=== PATIENT | female | born 1930 | race Caucasian/White ===

== ENCOUNTER 2017-01-24 11:40 | Inpatient (IN) | payer MEDICARE ==
--- NOTE | ~2017-01-24 | HP ---
History And Physical [id number] [place]. [address] NAME: MARIS HAJI : [birth year] STATUS : ADM IN [facility]#: [id number] AGE: 86 ADM/REG DATE : 01/24/17 MR#: [id number] REPORT SERV DATE: 01/24/17 DICTATED BY: LYDIA DEVLIN DATE: 01/24/17 REPORT STATUS : Draft TRANSCRIBED BY: MODL DATE: 01/24/17 DATE OF ADMISSION: 01/24/2017 CHIEF COMPLAINT: This 86-year-old white female, who is triaged in the emergency room today 01/24/2017 at 1049 hours with a chief complaint of possible GI bleed per . After evaluation in the emergency room, it was felt that further inpatient evaluation and treatment would be needed. She was referred to the Hospitalist Service for admission. She is now seen by the undersigned and admitted. The history was obtained from the patient, , ER physician, Dr. Dailey, and review of medical records on [facility] [employer] [facility]. HISTORY OF PRESENT ILLNESS: For approximately two days, she has had diarrhea with dark black stools. Associated with this, she has had diffuse moderate abdominal pain. She has had nausea, but no vomiting. She has had malaise, weakness, and chills without documented fever. She has not had chest pain. She has not had any urinary bleeding. She has not been taking any aspirin, Aleve, and Advil, or other NSAID. She has not been using any Pepto-Bismol. She has noted no other mucosal bleeding. She has not had previous gastrointestinal bleeding. She does not recall previous GI endoscopic evaluation, though when hospitalized here in 2008, she had a hemoccult-positive stool, and it was suggested that she have an outpatient evaluation. PAST MEDICAL HISTORY: Her other significant medical history includes: 1. Chronic atrial fibrillation. 2. Xarelto for atrial fibrillation. 3. Systolic congestive heart failure. 4. Systemic hypertension. 5. Hiatal hernia with reflux disease. 6. Previous infrarenal abdominal aortic aneurysm post bilateral stent graft, the iliacs. 7. Hyperlipidemia. 8. Osteoarthritis. 9. Chronic left lower extremity pain , post back surgery, 12/04/2009 for spinal stenosis with intractable radiculopathy L3-L4, L4-L5 on left. 10.Hypothyroid with possible iatrogenic hyperthyroidism with TSH on 12/09/2016, 0.008. 11.Osteoporosis with L1-L2 compression fracture. PAST SURGICAL HISTORY: Lrdog-kf-yibwh stent graft, back surgery as noted, cholecystectomy, abdominal hysterectomy, cataract extraction. ALLERGIES OR INTOLERANCE: Penicillin and sulfadiazine. HOME MEDICATIONS: Coreg 12.5 mg twice daily, Neurontin 300 mg daily, levothyroxine 112 mcg daily, Prilosec 20 mg daily as needed, Systane eye drops, potassium 10 mEq daily, Xarelto 20 mg daily, Zocor 40 mg daily, Aldactone 25 mg daily, Demadex 20 mg daily, Calan SR 240 mg History And Physical [address] [address] NAME: MARIS HAJI : [birth year] STATUS : ADM IN [facility]#: [id number] AGE: 86 ADM/REG DATE : 01/24/17 MR#: [id number] REPORT SERV DATE: 01/24/17 DICTATED BY: LYDIA DEVLIN DATE: 01/24/17 REPORT STATUS : Draft TRANSCRIBED BY: CRIS DATE: 01/24/17 daily. SOCIAL HISTORY: for 47 years. Lives with . Remote tobacco use. Two children and three grandchildren. FAMILY HISTORY: Mother with TB. Father had a stroke. Brother with coronary artery disease. REVIEW OF SYSTEMS: Complete, done with the patient and and negative except as noted above. PHYSICAL EXAMINATION: VITAL SIGNS: Admission ER vital signs, blood pressure 104/66, temperature 98.3, pulse 67, respirations 18, O2 saturation 99%. When seen by the undersigned, sinus bradycardia rate 59, blood pressure 102/59, O2 saturation 95, respirations 16. Note on review of blood pressure trends, she has had two blood pressure is 96/58 and 88/55 during her ER stay. GENERAL: This is an acutely ill-appearing white female examined in the emergency room, who is uncomfortable and actually does not wish to be touched or examined. SKIN: Warm and dry. No rash, petechiae, or ecchymoses. NODES: No palpable cervical. I cannot adequately feel axillary inguinal areas because of hypersensitivity. HEENT: Atraumatic with symmetric facies. Lids, sclerae, and conjunctivae negative. No xanthelasma, scleral icterus, or conjunctival petechiae or injection. Pupils are equal, round, and reactive to light. Extraocular movements intact. No nystagmus. Hearing intact. External ears negative. Nose negative. Anterior nares clear. Lips, gums, tongue, mucosa, hard and soft palates, posterior pharynx, negative. She is edentulous. NECK: Supple. No visible JVD or asymmetry. No palpable mass, goiter, or tenderness. Trachea midline. Nontender. LUNGS: Clear to auscultation. Normal respiratory effort. HEART: Irregular rhythm. No audible murmur, gallop, rub, or click. Distant heart tones. Pulses 2+ radial carotid and dorsalis pedis. Cannot feel femoral areas because of hypersensitivity. ABDOMEN: Obese, slightly distended, diffusely tender to palpation without guarding, rebound, or rigidity. Cannot feel liver, spleen, kidneys, or aortic pulsation. EXTREMITIES: Bony knee and shoulder deformities. No active synovitis or clubbing. No edema. NEUROLOGIC: Mental status appears normal. Cranial nerves II through XII normal. Deep tendon reflexes absent. Sensory intact touch and temperature. PSYCHIATRIC: Appropriate mood and affect for presentation. DATA: Sodium 140, potassium 4.3, chloride 108, CO2 of 23, BUN 22, creatinine 1.09, glucose 80, calcium 8.3. Total protein 6.7, albumin 3, globulin 3.7, total bilirubin is 0.6. Alkaline phosphatase 81, ALT 34, AST 43. Lipase is 173, troponin less than 0.02. BNP is 152.2. White count on admission 5.7, repeat 6 hours 4.5; hemoglobin 13.8 on admission, repeat 6 hours, 13.6; platelets 129 on admission, repeat 118,000. PT and PTT are pending. Urinalysis, positive protein. EKG, atrial fibrillation, no acute changes. Chest x-ray is pending. CT of the abdomen and pelvis, abdominal aortic aneurysm 6.3 x 6.3 without evidence History And Physical [address] [address] NAME: MARIS HAJI : [birth year] STATUS : ADM IN [facility]#: [id number] AGE: 86 ADM/REG DATE : 01/24/17 MR#: [id number] REPORT SERV DATE: 01/24/17 DICTATED BY: LYDIA DEVLIN DATE: 01/24/17 REPORT STATUS : Draft TRANSCRIBED BY: MODL DATE: 01/24/17 for aneurysmal bleed. Bifurcated aortoiliac stent graft in place. Large hiatal hernia. Hepatic and renal cysts. Diverticulosis L1-L2 compression fractures. Thoracolumbar dextroscoliosis with posterior lumbar fusion L3-L5. ASSESSMENT: This is an 86-year-old white female with: 1. Gastrointestinal bleeding on Xarelto. 2. Chronic atrial fibrillation. 3. Systolic congestive heart failure. 4. Hypertension with transient hypotension in the emergency room. 5. Large hiatal hernia on CT. 6. Svdoe-ee-fldts stent graft, leak not excluded without contrast on CT. 7. Large hiatal hernia. 8. Hyperlipidemia. 9. Osteoarthritis. 10.Chronic pain post back surgery. 11.Hypothyroid possible iatrogenic hyperthyroid. 12.Osteoporosis with L1-L2 compression fractures. 13.Hepatic and renal cysts. 14.Diverticulosis. PLAN: Six floor admit. Discontinue Calan. Reduce carvedilol. Hold levothyroxine until followup TSH. Protonix drip. Hold potassium, Xarelto, Aldactone, and torsemide. Crystalloid volume resuscitation. Followup laboratory studies. I called and spoke with Dr. Walt Chavez personal care home administrator for [facility], is aware of the patient tonight. Endoscopy evaluation in a.m. Further diagnostic and therapeutic recommendations pending above. The patient is full code on discussion. DD/MODL Lydia Devlin M.D. / [id number] CC: Pérez Moyer M.D.
--- NOTE | ~2017-01-24 | CN ---
Consultation Report [facility] [address] [place]. [address] NAME: MARIS WALDRON : [birth year] STATUS : ADM IN PAT#: [id number] AGE: 86 ADM/REG DATE : 01/24/17 MR#: [id number] REPORT SERV DATE: 01/25/17 DICTATED BY: MAYDA GUNTER DATE: 01/25/17 REPORT STATUS : Draft TRANSCRIBED BY: MODL DATE: 01/25/17 GI CONSULTATION DATE OF CONSULTATION: 01/25/2017 REASON FOR CONSULTATION: Evaluation and management of GI bleed melena. HISTORY OF PRESENT ILLNESS: Ms Waldron is an 86-year-old female patient, who presented to [facility] on 01/24/2017 with a chief complaint of black stools since Monday. This is reported from the . The patient states that she has been having abdominal pain as well as diarrhea and black stools. The describes this all began on Monday. She does have a history of atrial fib, being on Xarelto, which the last dose of this was Monday on 01/22/2017. CT scan on admission was obtained. This was a noncontrasted exam. Findings on that exam showed an abdominal aortic aneurysm. It measured 6.3 x 6.3 cm without evidence of aneurysm leak with appearance of a bifurcated aortoiliac stent graft being in place, not well evaluated secondary to lack of contrast, so could not exclude endoleak. She had a large hiatal hernia, hepatic, cyst as well as renal cyst, diverticulosis without diverticulitis. Her hemoglobin on admission was 13.8, presently it is 13.2, INR of 1.2. BUN 22, creatinine 1.09. This morning, she has still had abdominal discomfort, unsure if she has had any recurrent diarrhea, the states that he has not been informed of that if she has. She has had some mild nausea at home without emesis. She has had a colonoscopy in the very distant past. The remembers diverticulosis, but that is all that he can recall from that exam. I have discussed with him. She will be taken down to the GI lab today and perform an upper endoscopy with Dr. Nova. Risks, benefits, alternatives, and complications were detailed for her to include, but not limited to risk of bleeding, perforation, infection, reaction to medications, as well as cardiac and pulmonary side effects. He gives clearance to proceed. PAST MEDICAL HISTORY: Chronic atrial fibrillation, on Xarelto; systolic CHF; hypertension; hiatal hernia; reflux; previous infrarenal abdominal aortic aneurysm with post bilateral stent graft; hyperlipidemia; osteoarthritis; chronic left lower extremity pain and edema; hypothyroidism; osteoporosis with compression fractures. PAST SURGICAL HISTORY: Kwjtv-qn-zkgvv stent graft, back surgery, cholecystectomy, hysterectomy, and cataract surgery. ALLERGIES: PENICILLIN AND SULFA. HOME MEDICATIONS: Coreg, Neurontin, levothyroxine, Prilosec, Systane eye drops, potassium, Xarelto, Zocor, Aldactone, Demadex, and Calan. SOCIAL HISTORY: . is present at the bedside. Past tobacco. No alcohol. No illicits. Consultation Report [address] [place]. [address] NAME: MARIS WALDRON : [birth year] STATUS : ADM IN [facility]#: [id number] AGE: 86 ADM/REG DATE : 01/24/17 MR#: [id number] REPORT SERV DATE: 01/25/17 DICTATED BY: MAYDA GUNTER DATE: 01/25/17 REPORT STATUS : Draft TRANSCRIBED BY: CRIS DATE: 01/25/17 FAMILY HISTORY: Noncontributory from a GI standpoint. REVIEW OF SYSTEMS: A 10-point review of systems was obtained, pertinent positives are addressed in the history of present illness. PHYSICAL EXAMINATION: VITAL SIGNS: Temperature is 98.4, pulse 72, respirations 18, and blood pressure 110/55. NEUROLOGIC: Reveals an alert, chronically ill-appearing elderly female, resting in bed. No obvious focal deficits. GENERAL: Cooperative, in no apparent distress. She is awake. She is alert. She is oriented. HEAD, EARS, EYES, NOSE, AND THROAT: Anicteric. Pupils are equal, round, and reactive to light and accommodation. Normocephalic and atraumatic. NECK: No JVD. No palpable nodes. LUNGS: Decreased and coarse in the bases. Shallow inspiratory effort. CARDIOVASCULAR SYSTEM: Irregularly rate and rhythm. ABDOMEN: Soft, obese, nondistended, but tender to palpation diffusely markedly felt on the left side. No rebound or guarding. No distention noted. EXTREMITIES: Left lower extremity edema which is chronic per the 's reports. SKIN: Warm, dry, and intact. PERTINENT LABORATORY DATA: Sodium 142, potassium 4.0, BUN is 21, and creatinine 0.83. White count 5.4, hemoglobin 13.2, hematocrit 41.3, and platelet count 117. INR 1.2. CO2 of 19, ALT of 34, AST of 43. ASSESSMENT: 1. "GI bleed," dark diarrheal stools since Monday. Hemoccult positive in the emergency room. 2. Abdominal pain, diffuse. 3. Atrial fibrillation, on Xarelto. Last dose 01/22/2017. 4. Diarrhea. 5. History of abdominal aortic aneurysm with ixeim-kk-geyum stent grafting. 6. Large hiatal hernia by CT scan. PLAN: 1. PPI drip. 2. EGD today. 3. Check stool studies. Other recommendations to follow endoscopy. ILAN/CRIS Devers Consultation Report [address] [place]. [address] NAME: MARIS WALDRON : [birth year] STATUS : ADM IN [facility]#: [id number] AGE: 86 ADM/REG DATE : 01/24/17 MR#: [id number] REPORT SERV DATE: 01/25/17 DICTATED BY: MAYDA GUNTER DATE: 01/25/17 REPORT STATUS : Draft TRANSCRIBED BY: MODL DATE: 01/25/17 [place] / [id number] CC: Pérez Moyer M.D.
--- NOTE | ~2017-01-24 | DS ---
Discharge Summary [address] [place]. [address] NAME: MARIS HAJI : [birth year] STATUS : DIS IN PAT#: [id number] AGE: 86 ADM/REG DATE : 01/24/17 MR#: [id number] REPORT SERV DATE: 01/27/17 DICTATED BY: LYDIA DEVLIN DATE: 01/26/17 REPORT STATUS : Draft TRANSCRIBED BY: MODL DATE: 01/26/17 ADMISSION DATE: 01/24/2017 DISCHARGE DATE: 01/26/2017 DISCHARGE DIAGNOSES: 1. Upper gastrointestinal bleeding. 2. Diffuse moderate inflammation characterized by erosions, erythema, and friability in the entire stomach, biopsies pending, endoscopic appearance consistent with gastritis. 3. A 9 cm hiatal hernia. 4. Chronic atrial fibrillation, on Eliquis. 5. Chronic systolic heart failure. 6. Hypertension history. 7. Hypotension with present illness and home medications, doses adjusted at discharge. 8. Previous infrarenal abdominal aortic aneurysm status post rjuxt-jh-nhkob stent graft. 9. Diverticulosis. 10.Hyperlipidemia. 11.Osteoarthritis. 12.Chronic anemia. 13.Iatrogenic hyperthyroidism with TSH on current Synthroid dose less than 0.005, Synthroid held at discharge. 14.Osteoporosis with compression fractures. 15.Hepatic and renal cysts. 16.Hypoglycemia, asymptomatic while n.p.o. OPERATIONS AND PROCEDURES: EGD and biopsies, Dr. Nova, 01/25/2017. PRESENT ILLNESS: This is an 86-year-old white female, who was triaged in the emergency room on 01/24/2017 at 1049 hours with black stools. After evaluation in the emergency room, she was referred to the Hospitalist Service for admission. She was seen by the undersigned and admitted as described on admission history and physical examination. Additional history included two days of diarrhea with dark black stools associated with diffuse moderate abdominal pain. She had not been taking any aspirin, Aleve, Advil, or other NSAID. She had not been using Pepto-Bismol. She had not had previous gastrointestinal bleeding and neither the patient nor recalled any previous GI endoscopic evaluation. ADDITIONAL HISTORY: Per history and physical examination. PHYSICAL EXAMINATION: Per history and physical examination. ADMISSION LABORATORY: Per admission history and physical examination. HOSPITAL COURSE: She was admitted as described with gastrointestinal bleeding, on Xarelto. Discharge Summary [place] [address] [place]. [address] NAME: MARIS HAJI : [birth year] STATUS : DIS IN PAT#: [id number] AGE: 86 ADM/REG DATE : 01/24/17 MR#: [id number] REPORT SERV DATE: 01/27/17 DICTATED BY: LYDIA DEVLIN DATE: 01/26/17 REPORT STATUS : Draft TRANSCRIBED BY: MODJersey DATE: 01/26/17 She was admitted to [address] [place] [address]. Xarelto was discontinued. Her home blood pressure medication was held. She was given a crystalloid volume resuscitation. In the emergency room, a CT scan of her abdomen and pelvis had been done. This demonstrated abdominal aortic aneurysm measuring up to 6.3 x 6.3 cm without evidence for aneurysm leak. The stent graft integrity and patency could not be evaluated. An endoleak could not be excluded on this exam as she did not have contrast. Additional findings included a large hiatal hernia, hepatic and left renal cysts, colonic diverticulosis without diverticulitis, compression fractures at L1 and L2, and thoracolumbar dextroscoliosis with posterior lumbar fusion from L3 through L5. She was started on a Protonix drip. I spoke with [facility], Dr. Chavez. A followup hemoglobin was checked 6 hours post ED admission and was relatively stable at 13.8 and 13.6. It was not felt that any emergent further endoscopic or vascular evaluation was in order. On 01/25/2017, she was taken to the GI lab where an EGD was performed by Dr. Nova with findings as described. There were no complications with this procedure. With the above-mentioned therapy while hospitalized, her black stools resolved. Her diet was resumed, and she did not have any GI symptoms. On 01/26/2017, when seen with her , she had no nausea or vomiting. She had no new pains with her chronic back and leg pain being stable. She was not dizzy sitting and was not dyspneic. Her sitting blood pressure was 99/62 without symptoms. Her room air saturation was 96 to 97. There were no new findings on exam, and her hemoglobin was 13.5. Her and I spoke about disposition planning or reconsideration of SNF/rehab versus home with home health care. He and his both preferred home with home health care. At this point, he felt that she was back to her baseline state. She was thought to be safe for discharge. She will have home health care for PT evaluation and treatment, med rec and monitoring, and a home evaluation. She will continue her home diet and activity. GI approved continuing her Xarelto at discharge at 20 mg daily. Her other medications will be Coreg 6.25 mg twice daily, reduced from 12.5; gabapentin 300 mg at bedtime; Prilosec 20 mg before breakfast and supper for 30 days, then daily; Zocor 40 mg daily. She will not use potassium or Calan SR 240 at this time. She will hold levothyroxine pending outpatient TSH checks. She will continue Xarelto as noted. She will continue Demadex 20 mg daily plus Aldactone 25 mg daily. An appointment was scheduled for her to see Dr. Luo next week for followup check and labs. will be contacting her about her biopsies. Discharge Summary [address] [place]. [address] NAME: MARIS HAJI : [birth year] STATUS : DIS IN PAT#: [id number] AGE: 86 ADM/REG DATE : 01/24/17 MR#: [id number] REPORT SERV DATE: 01/27/17 DICTATED BY: LYDIA DEVLIN DATE: 01/26/17 REPORT STATUS : Draft TRANSCRIBED BY: CRIS DATE: 01/26/17 Discharge time greater than 30 minutes. DD/CRIS Lydia Devlin M.D. / [id number] CC: Pérez Moyer M.D. Chuck
--- NOTE | ~2017-01-24 | EGD ---
EGD REPORT [facility] [address] [address] NAME: DELMY WALDRON : [birth year] STATUS : ADM IN PAT#: [id number] AGE: 86 ADM/REG DATE : 01/24/17 MR#: [id number] REPORT SERV DATE: 01/25/17 DICTATED BY: TRISTAN LUNDBERG DATE: 01/25/17 REPORT STATUS : Draft TRANSCRIBED BY: [employer] DATE: 01/25/17 Endoscopy Center Patient Name: Delmy Waldron Date of : 1930 Attending MD: TRISTAN LUNDBERG, Procedure Date No Time: 01/25/2017 Procedure: Upper GI endoscopy Indications: Melena Referring MD: LYDIA SINCLAIR Medicines: Monitored Anesthesia Care Complications: No immediate complications. Estimated blood loss: None. Procedure: Pre-Anesthesia Assessment: - ASA Grade Assessment: IV - A patient with severe systemic disease that is a constant threat to life. After obtaining informed consent, the endoscope was passed under direct vision. Throughout the procedure, the patient's blood pressure, pulse, and oxygen saturations were monitored continuously. The GIF [id number] was introduced through the mouth, and advanced to the second part of duodenum. The upper GI endoscopy was accomplished without difficulty. The patient tolerated the procedure well. Findings: The examined esophagus was normal. Localized nodular mucosa was found in the cardia. Biopsies were taken with a cold forceps for histology. Verification of patient identification for the specimen was done. Estimated blood loss was minimal. Diffuse moderate inflammation characterized by erosions, erythema and friability was found in the entire examined stomach. Biopsies were taken with a cold forceps for histology. Verification of patient identification for the specimen was done. Estimated blood loss was minimal. A 9 cm hiatus hernia was present. The examined duodenum was normal. Impression: - Normal esophagus. - Nodular mucosa in the cardia. Biopsied. - Gastritis. Biopsied. - Hiatus hernia. - Normal examined duodenum. Recommendation: - Return to previous diet. - Use Protonix (pantoprazole) 40 mg PO daily. EGD REPORT [facility] [address] [place]. [address] NAME: DELMY WALDRON : [birth year] STATUS : ADM IN [facility]#: [id number] AGE: 86 ADM/REG DATE : 01/24/17 MR#: [id number] REPORT SERV DATE: 01/25/17 DICTATED BY: TRISTAN LUNDBERG DATE: 01/25/17 REPORT STATUS : Draft TRANSCRIBED BY: [employer] DATE: 01/25/17 - Continue present medications. - Await pathology results. Procedure Code(s): --- Professional --- 84806, Esophagogastroduodenoscopy, flexible, transoral; with biopsy, single or multiple Diagnosis Code(s): --- Professional --- K31.9, Disease of stomach and duodenum, unspecified K29.70, Gastritis, unspecified, without bleeding K44.9, Diaphragmatic hernia without obstruction or gangrene K92.1, Melena CPT copyright 2013 [employer]. All rights reserved. The codes documented in this report are preliminary and upon seasonal warehouse associate review may be revised to meet current compliance requirements. TRISTAN LUNDBERG, 01/25/2017 2:09 PM Number of Addenda: 0 Note Initiated On: 01/25/2017 2:00 PM Scope Withdrawal Time 0 hours 0 minutes 0 seconds [address] [place] [address]
[2017-01-24 11:27] LABS: BASOPHILS 0.5 %; BASOPHILS ABSOLUTE 0.03 10/3/uL (0.0-0.16); EOSINOPHILS 0 %; HEMATOCRIT 41.1 % (36.0-48.0); HEMOGLOBIN 13.8 g/dL (12.0-16.0); LYMPHOCYTES 32.7 %; LYMPHOCYTES ABSOLUTE 1.85 10/3/uL (0.67-4.30); MANUAL DIFF NO %; MEAN CORPUS HGB CONC 33.6 g/dL (32.0-36.0); MEAN CORPUSCULAR HEMOGLOB 29.2 pg (26.0-34.0); MEAN CORPUSCULAR VOLUME 86.9 fL (80-100); MEAN PLATELET VOLUME 11.7 fL (9.2-13.0); MONOCYTES 26.2 %; MONOCYTES ABSOLUTE 1.48 10/3/uL (0.21-1.20); NEUTROPHILS 40.6 %; NEUTROPHILS ABSOLUTE 2.29 10/3/uL (2.02-8.40); PLATELET COUNT 129 10/3/uL (150-400); RBC DISTRIBUTION WIDTH 14.9 % (12.0-16.0); RED CELL COUNT 4.73 10/6/uL (4.0-5.6); WHITE BLOOD CELLS 5.7 10/3/uL (4.5-10.5)
[~2017-01-24 11:40] MED LIST: ACCURETI1 PO; ASAB PO; COREG12 PO; DCN100 PO; DEMA100 PO; FOSAMAX70 MG PO; GABARONE300 MG PO; JANTOVEN1 MG PO; JANTOVEN2 MG PO; LEVOTHROID125 MCG PO; MOBIC15 MG PO; NEUR300 PO; P5 PO; PLAQ200B PO; PRILO PO; REG5 PO; SPIRO25 PO; SYN125 PO; VERELAN360 MG PO; ZOCOR40 PO
[2017-01-24 11:41] LABS: A/G RATIO 0.8 (0.7-1.9); BUN (BLOOD UREA NITROGEN) 22 MG/DL (6-23); CHLORIDE, SERUM 108 MMOL/L (96-112); CO2 (CARBON DIOXIDE) 23 MMOL/L (24-34); CREATININE 1.09 MG/DL (0.55-1.02); GFR AFRICAN AMERICAN 53 ML/MIN (>=60); GFR NON AFRICAN AMERICAN 46 ML/MIN (>=60); GLOBULIN 3.7 G/DL (2.5-4.1); GLUCOSE, SERUM 80 MG/DL (60-99); POTASSIUM, SERUM 4.3 MMOL/L (3.5-5.3); SGOT(AST) 43 U/L (5-40); SGPT(ALT) 34 U/L (5-65); SODIUM, SERUM 140 MMOL/L (135-148); TOTAL BILIRUBIN 0.6 MG/DL (0-1.2); TOTAL PROTEIN 6.7 G/DL (6.0-8.5)
[2017-01-24 11:42] LABS: ALKALINE PHOSPHATASE 81 U/L (45-117); CALCIUM, SERUM 8.3 MG/DL (8.5-10.4)
[2017-01-24 12:00] LABS: BAND NEUTROPHILS 4 %; ER DIFF TAT 0 Hrs 37 Mins; LYMPHOCYTES 30 %; LYMPHOCYTES ABSOLUTE (CALC) 1.71 10/3/uL (0.67-4.30); MONOCYTES 21 %; NEUTROPHILS ABSOLUTE (CALC) 2.79 10/3/uL (2.02-8.40); PLATELET ESTIMATE SLT DEC (ADEQUATE); RBC MORPHOLOGY NORM (NORMAL); SEGMENTED NEUTROPHIL (0) 45 %; TOTAL NUCLEATED CELLS 100
[2017-01-24] MEDS ORDERED: COREG12 PO (12:20)
[2017-01-24] MEDS ORDERED: ZOCOR40 PO (12:20)
[2017-01-24] MEDS ORDERED: KLOR-CON 1010 MEQ PO (12:20)
[2017-01-24] MEDS ORDERED: CALAN SR240 MG PO (12:21)
[2017-01-24] MEDS ORDERED: NEUR300 PO (12:21)
[2017-01-24] MEDS ORDERED: DEMA20 PO (12:22)
[2017-01-24] MEDS ORDERED: LEVOTHYROXIN112 MCG PO (12:22)
[2017-01-24] MEDS ORDERED: XARELTO20 MG PO (12:22)
[2017-01-24] MEDS ORDERED: SPIRO25 PO (12:23)
[2017-01-24] MEDS ORDERED: PRILO PO (12:23)
[2017-01-24] MEDS ORDERED: SYSTANE OPH (12:24)
[2017-01-24 14:09] LABS: WBC (NOT ORDERED) (RFLEX) 0 (0-5)
[2017-01-24 14:19] LABS: ASCORBIC ACID (UR NOT ORDER) 40 (NEG); BILIRUBIN, URINE NEGATIVE (NEG); ER URINALYSIS TAT 0 Hrs 10 Mins; KETONE, URINE 20 MG/DL (NEG); LEUKOCYTE ESTERASE(NOT OR NEG (NEG); NITRITE (URINE) NEG (NEG)
[2017-01-24 19:41] LABS: HEMATOCRIT 41.7 % (36.0-48.0); HEMOGLOBIN 13.6 g/dL (12.0-16.0); MEAN CORPUS HGB CONC 32.6 g/dL (32.0-36.0); MEAN CORPUSCULAR VOLUME 88.9 fL (80-100); MEAN PLATELET VOLUME 11.5 fL (9.2-13.0); PLATELET COUNT 118 10/3/uL (150-400); RBC DISTRIBUTION WIDTH 14.8 % (12.0-16.0); RED CELL COUNT 4.69 10/6/uL (4.0-5.6); WHITE BLOOD CELLS 4.5 10/3/uL (4.5-10.5)
[2017-01-24 19:42] LABS: MANUAL DIFF YES %
[2017-01-24 20:01] LABS: BAND NEUTROPHILS 3 %; LYMPHOCYTES 25 %; LYMPHOCYTES ABSOLUTE (CALC) 1.13 10/3/uL (0.67-4.30); MONOCYTES 18 %; MONOCYTES ABSOLUTE (CALC) 0.81 10/3/uL (0.21-1.20); NEUTROPHILS ABSOLUTE (CALC) 2.57 10/3/uL (2.02-8.40); SEGMENTED NEUTROPHIL (0) 54 %; TOTAL NUCLEATED CELLS 100
[2017-01-24 20:02] LABS: BURR CELLS 1+ (3-10/OIF) (0-2/OIF); PLATELET ESTIMATE SLT INC (ADEQUATE)
[2017-01-25 07:03] LABS: BASOPHILS 0.4 %; BASOPHILS ABSOLUTE 0.02 10/3/uL (0.0-0.16); EOSINOPHILS 0 %; HEMATOCRIT 41.3 % (36.0-48.0); HEMOGLOBIN 13.2 g/dL (12.0-16.0); LYMPHOCYTES 34.3 %; LYMPHOCYTES ABSOLUTE 1.84 10/3/uL (0.67-4.30); MEAN CORPUSCULAR HEMOGLOB 29.1 pg (26.0-34.0); MEAN PLATELET VOLUME 11.6 fL (9.2-13.0); MONOCYTES 17.1 %; MONOCYTES ABSOLUTE 0.92 10/3/uL (0.21-1.20); NEUTROPHILS 48.2 %; NEUTROPHILS ABSOLUTE 2.59 10/3/uL (2.02-8.40); PLATELET COUNT 117 10/3/uL (150-400); RBC DISTRIBUTION WIDTH 14.9 % (12.0-16.0); RED CELL COUNT 4.54 10/6/uL (4.0-5.6); WHITE BLOOD CELLS 5.4 10/3/uL (4.5-10.5)
[2017-01-25 07:04] LABS: MANUAL DIFF NO %
[2017-01-25 07:11] LABS: INTERNATIONAL NORMAL RATI 1.2 UNITS (-); PARTIAL THROMBO TIME 32.6 SEC (22.5-37.2); PROTIME (NOT ORD) 14.6 SEC (12.0-14.5)
[2017-01-25 07:30] LABS: BUN (BLOOD UREA NITROGEN) 21 MG/DL (6-23); CALCIUM, SERUM 7.9 MG/DL (8.5-10.4); CHLORIDE, SERUM 112 MMOL/L (96-112); CO2 (CARBON DIOXIDE) 19 MMOL/L (24-34); CREATININE 0.83 MG/DL (0.55-1.02); GFR AFRICAN AMERICAN 73 ML/MIN (>=60); GFR NON AFRICAN AMERICAN 63 ML/MIN (>=60); GLUCOSE, SERUM 60 MG/DL (60-99); SODIUM, SERUM 142 MMOL/L (135-148); ULTRASENSITIVE TSH < 0.005 MCIU/ML (0.358-3.740)
[2017-01-26 04:08] LABS: BASOPHILS 0.2 %; BASOPHILS ABSOLUTE 0.01 10/3/uL (0.0-0.16); EOSINOPHILS 0.7 %; EOSINOPHILS ABSOLUTE 0.03 10/3/uL (0.0-0.53); HEMATOCRIT 41.3 % (36.0-48.0); HEMOGLOBIN 13.5 g/dL (12.0-16.0); IMMATURE GRANULOCYTES 0.2 %; IMMATURE GRANULOCYTES ABSOLUTE 0.01 10/3/uL (0.0-0.11); LYMPHOCYTES 43.9 %; LYMPHOCYTES ABSOLUTE 2.02 10/3/uL (0.67-4.30); MANUAL DIFF NO %; MEAN CORPUS HGB CONC 32.7 g/dL (32.0-36.0); MEAN CORPUSCULAR HEMOGLOB 29.2 pg (26.0-34.0); MEAN CORPUSCULAR VOLUME 89.2 fL (80-100); MEAN PLATELET VOLUME 11.8 fL (9.2-13.0); MONOCYTES 18.7 %; MONOCYTES ABSOLUTE 0.86 10/3/uL (0.21-1.20); NEUTROPHILS 36.3 %; NEUTROPHILS ABSOLUTE 1.67 10/3/uL (2.02-8.40); PLATELET COUNT 114 10/3/uL (150-400); RBC DISTRIBUTION WIDTH 14.5 % (12.0-16.0); RED CELL COUNT 4.63 10/6/uL (4.0-5.6); WHITE BLOOD CELLS 4.6 10/3/uL (4.5-10.5)
[2017-01-26 04:25] LABS: CALCIUM, SERUM 8.6 MG/DL (8.5-10.4); CHLORIDE, SERUM 112 MMOL/L (96-112); CREATININE 0.84 MG/DL (0.55-1.02); GFR AFRICAN AMERICAN 72 ML/MIN (>=60); GFR NON AFRICAN AMERICAN 62 ML/MIN (>=60); SODIUM, SERUM 144 MMOL/L (135-148)
[2017-01-26 04:26] LABS: BUN (BLOOD UREA NITROGEN) 16 MG/DL (6-23); CO2 (CARBON DIOXIDE) 25 MMOL/L (24-34); GLUCOSE, SERUM 91 MG/DL (60-99)
== END 2017-01-26 14:30 | disposition home health service (06) | DRG 378 ==
LOC: ER 11:40 → 6NO 18:01
PROVIDERS: Emergency Medicine; Internal Medicine; Internal Medicine Gastroenterology
PROC: 0DB68ZX Excision of Stomach, Via Natural or Artificial Opening Endoscopic, Diagnostic (ICD-10-PCS; principal; 2017-01-25 14:03)
DX: K92.2 Gastrointestinal hemorrhage, unspecified (principal); I50.22 Chronic systolic (congestive) heart failure; D69.6 Thrombocytopenia, unspecified; I48.2 Chronic atrial fibrillation; I11.0 Hypertensive heart disease with heart failure; N28.1 Cyst of kidney, acquired; K76.89 Other specified diseases of liver; M80.00XS Age-related osteoporosis with current pathological fracture, unspecified site, sequela; D64.9 Anemia, unspecified; K44.9 Diaphragmatic hernia without obstruction or gangrene; K29.70 Gastritis, unspecified, without bleeding; E78.5 Hyperlipidemia, unspecified; E05.80 Other thyrotoxicosis without thyrotoxic crisis or storm; T38.1X5A Adverse effect of thyroid hormones and substitutes, initial encounter; T45.515A Adverse effect of anticoagulants, initial encounter; I71.4 Abdominal aortic aneurysm, without rupture; I73.9 Peripheral vascular disease, unspecified; E16.2 Hypoglycemia, unspecified; K57.30 Diverticulosis of large intestine without perforation or abscess without bleeding; K31.9 Disease of stomach and duodenum, unspecified; M19.90 Unspecified osteoarthritis, unspecified site; Z98.1 Arthrodesis status
CPT/HCPCS: 36415; 71010; 74176; 80048; 80053; 81001; 82962; 83690; 83880; 84443; 84484; 85025; 85610; 85730; 86850; 86900; 86901; 88305; 88342; 93005; 96365; 96366; 96375; 99285; A9270-GY; C9113; J2405